=== PATIENT | female | born 1945 | race Hispanic/Latino ===

== ENCOUNTER 2023-08-16 10:44 | Observation (INO) | payer MEDICARE ==
[~2023-08-16] VITALS: Ht 147.3 cm; Wt 64.0 kg
[~2023-08-16 10:44] MED LIST: ASPIRIN EC81 MG PO; CARBIDOPA-LEVO1 EAC1 PO; LACTULOSE20 GM/30 M PO; XIFAXAN550 MG PO
[2023-08-16 11:21] LABS: BASOPHILS % 0.3 % (0.0-1.0); EOSINOPHILS # (AUTO) 0.1 (0.0-0.4); EOSINOPHILS % 2.2 % (0.0-6.0); HEMATOCRIT 33.6 % (34.2-44.1); HEMOGLOBIN 11.6 g/dL (12.0-16.0); LYMPHOCYTES # (AUTO) 2.6 (1.0-3.2); LYMPHOCYTES % 40.2 % (18.0-39.1); MEAN CORPUSCULAR HEMOGLOBIN 31.3 pg (28-32); MEAN CORPUSCULAR HGB CONC 34.5 g/dL (31-35); MEAN CORPUSCULAR VOLUME 90.6 fL (81-99); MONOCYTES # (AUTO) 0.5 (0.2-0.8); MONOCYTES % 7.6 % (4.4-11.3); NEUTROPHILS # (AUTO) 3.2 (2.1-6.9); NEUTROPHILS % 49.5 % (38.7-80.0); PLATELET COUNT 132 x10e3/uL (140-360); RED BLOOD COUNT 3.71 x10e6/uL (3.6-5.1); RED CELL DISTRIBUTION WIDTH 16.6 % (11.7-14.4); WHITE BLOOD COUNT 6.49 x10e3/uL (4.8-10.8)
[2023-08-16 11:35] LABS: INR 1.17; PROTHROMBIN TIME 15.7 seconds (11.9-14.5)
[2023-08-16 11:36] LABS: PARTIAL THROMBOPLASTIN TIME 34.4 seconds (23.8-35.5)
[2023-08-16 11:36] LABS: CLARITY,URINE CLEAR (CLEAR); COLOR,URINE YELLOW (YELLOW)
[2023-08-16 11:37] LABS: BILIRUBIN,URINE NEGATIVE (NEGATIVE); GLUCOSE, URINE NEGATIVE (NEGATIVE); KETONES,URINE TRACE (NEGATIVE); LEUKOCYTE ESTERASE ,URINE NEGATIVE (NEGATIVE); NITRITE,URINE POSITIVE (NEGATIVE); PH,URINE 6 (5 - 7); PROTEIN,URINE DIPSTICK 2+ (NEGATIVE); RBC,URINE 0-5 /HPF (0-5); URINE UROBILINOGEN 1 mg/dL (0.2 - 1)
[2023-08-16 11:38] LABS: BACTERIA,URINE MANY /HPF; EPITHELIAL CELLS,URINE MODERATE /LPF; WBC,URINE (MAN) 0-5 /HPF (0-5)
[2023-08-16 11:48] LABS: ALBUMIN 2.7 g/dL (3.5-5.0); ALBUMIN/GLOBULIN RATIO 0.6 (0.8-2.0); ANION GAP 17.6 mmol/L (8-16); BILIRUBIN,TOTAL 1.8 mg/dL (0.2-1.2); CALCIUM 9.2 mg/dL (8.4-10.2); CREATININE, SERUM 1.06 mg/dL (0.57-1.11); POTASSIUM 3.6 mmol/L (3.5-5.1); TOTAL PROTEIN 7.3 g/dL (6.5-8.1)
[2023-08-16] MEDS ORDERED: SODIUM CHLORIDE FLUSH 10 ML SYR INJ PRN (13:15)
[2023-08-16] MEDS ORDERED: ONDANSETRON HCL INJ 2MG/ML 2ML 2 MG/ML VIAL IV PRN (13:15)
[2023-08-16] MEDS ORDERED: OMEPRAZOLE40 MG PO (16:01)
[2023-08-16] MEDS ORDERED: ATORVASTATIN CA20 MG PO (16:01)
[2023-08-16] MEDS ORDERED: SINEMET 25-1001 EACH PO (16:01)
[2023-08-16] MEDS ORDERED: AMLODIPINE BESYL5 MG PO (16:01)
[2023-08-16] MEDS: LACTULOSE SYRUP 20 GM/30 ML UDC PO PRN (16:10)
[2023-08-16 16:15] VITALS: BP 133/56; PULSE 80; RESP 20; TEMP 97.8; O2SAT 100
[2023-08-16] MEDS ORDERED: SIMETHICONE 80 MG CHEW PO PRN (18:15)
[2023-08-16] MEDS ORDERED: ALBUTEROL/IPRATROPIUM 3 ML NEB NEB PRN (18:15)
[2023-08-16] MEDS ORDERED: METOPROLOL TARTRATE INJ 1 MG/ML VIAL IV PRN (18:15)
[2023-08-16] MEDS: LACTULOSE SYRUP 20 GM/30 ML UDC PO SCH (18:15)
[2023-08-16 20:00] VITALS: BP 131/57; PULSE 84; RESP 18; TEMP 97.8; O2SAT 100
[2023-08-16] MEDS: CARBIDOPA/LEVODOPA 25/100 TAB PO SCH (22:04)
[2023-08-16 23:48] VITALS: BP 142/57; PULSE 85; RESP 18; TEMP 98.4; O2SAT 100
[2023-08-17] VITALS: BP 142/57; PULSE 85; RESP 18; TEMP 98.4; O2SAT 100
[2023-08-17 04:00] VITALS: BP 133/59; PULSE 86; RESP 18; TEMP 98; O2SAT 97
[2023-08-17 04:43] VITALS: BP 133/59; PULSE 86; RESP 18; TEMP 98; O2SAT 97
[2023-08-17 07:30] LABS: BASOPHILS % 0.5 % (0.0-1.0); EOSINOPHILS # (AUTO) 0.2 (0.0-0.4); EOSINOPHILS % 3.6 % (0.0-6.0); HEMOGLOBIN 11.6 g/dL (12.0-16.0); LYMPHOCYTES # (AUTO) 2.6 (1.0-3.2); LYMPHOCYTES % 40.9 % (18.0-39.1); MEAN CORPUSCULAR HEMOGLOBIN 31.7 pg (28-32); MEAN CORPUSCULAR HGB CONC 35.2 g/dL (31-35); MEAN CORPUSCULAR VOLUME 90.2 fL (81-99); MONOCYTES # (AUTO) 0.7 (0.2-0.8); MONOCYTES % 11.7 % (4.4-11.3); NEUTROPHILS # (AUTO) 2.7 (2.1-6.9); NEUTROPHILS % 43.1 % (38.7-80.0); PLATELET COUNT 126 x10e3/uL (140-360); RED BLOOD COUNT 3.66 x10e6/uL (3.6-5.1); RED CELL DISTRIBUTION WIDTH 16.7 % (11.7-14.4); WHITE BLOOD COUNT 6.35 x10e3/uL (4.8-10.8)
[2023-08-17 07:50] LABS: ALBUMIN 2.7 g/dL (3.5-5.0); ALBUMIN/GLOBULIN RATIO 0.6 (0.8-2.0); ANION GAP 14.7 mmol/L (8-16); BILIRUBIN,TOTAL 1.8 mg/dL (0.2-1.2); CALCIUM 9.3 mg/dL (8.4-10.2); CREATININE, SERUM 0.91 mg/dL (0.57-1.11); POTASSIUM 3.7 mmol/L (3.5-5.1); TOTAL PROTEIN 7.4 g/dL (6.5-8.1)
[2023-08-17 08:14] VITALS: BP 137/68; PULSE 82; RESP 17; TEMP 98.4; O2SAT 100
[2023-08-17 08:46] VITALS: BP 137/68; PULSE 82; RESP 17; TEMP 98.4; O2SAT 100
[2023-08-17] MEDS: PANTOPRAZOLE SOD 40 MG TABEC PO SCH (09:12)
[2023-08-17] MEDS: RIFAXIMIN 550 MG TABLET PO SCH (09:12)
[2023-08-17] MEDS: AMLODIPINE BESYLATE 5 MG TAB PO SCH (09:12)
[2023-08-17] MEDS: SODIUM BICARBONATE 650 MG TAB PO SCH (09:17)
[2023-08-17] MEDS ORDERED: SODIUM BICARBO650 MG PO (10:56)
[2023-08-17] MEDS ORDERED: LACTULOSE20 GM/30 M PO (10:56)
[2023-08-17] MEDS ORDERED: CEPHALEXIN500 MG PO (11:01)
[2023-08-17 12:11] VITALS: BP 124/46; PULSE 78; RESP 17; TEMP 98.2; O2SAT 99
[2023-08-17] MEDS ORDERED: ONDANSETRON HCL 4 MG ORAL DISINTEGRATING TAB PO PRN (12:30)
== END 2023-08-17 13:53 | disposition home or self-care (01) ==
LOC: ER 10:50 → ERHOLD 13:10 → MED/SURG3 15:17
PROVIDERS: ADMIT Internal Medicine; ATTEND Internal Medicine
DX: K76.82 Hepatic encephalopathy (principal); N39.0 Urinary tract infection, site not specified; K74.69 Other cirrhosis of liver; E72.20 Disorder of urea cycle metabolism, unspecified; I10 Essential (primary) hypertension; E11.9 Type 2 diabetes mellitus without complications; G20.A1 Parkinson's disease without dyskinesia, without mention of fluctuations; Z86.73 Personal history of transient ischemic attack (TIA), and cerebral infarction without residual deficits; Z11.52 Encounter for screening for COVID-19; Z79.899 Other long term (current) drug therapy; Z79.82 Long term (current) use of aspirin
CPT/HCPCS: 36415 ×2; 70450; 71045; 80053 ×2; 81001; 82140 ×2; 82948 ×2; 84484; 85025 ×2; 85610; 85730; 93005; 99284; G0378 ×2; J0696; S0164; U0002

== ENCOUNTER 2024-01-29 07:09 | Inpatient (IN) | payer MEDICARE ==
[2024-01-29] VITALS (7 sets, daily range): BP systolic 114–140; BP diastolic 43–61; PULSE 86–92; RESP 18–19; TEMP 97.7–98.7; O2SAT 98–99
[~2024-01-29] VITALS: Ht 144.8 cm; Wt 67.1 kg
[~2024-01-29 07:09] MED LIST changes: +AMLODIPINE BESYL5 MG PO; +ATORVASTATIN CA20 MG PO; +CEPHALEXIN500 MG PO; +OMEPRAZOLE40 MG PO; +SINEMET 25-1001 EACH PO; +SODIUM BICARBO650 MG PO
[2024-01-29 08:32] LABS: BASOPHILS % 0.3 % (0.0-1.0); EOSINOPHILS # (AUTO) 0.2 (0.0-0.4); EOSINOPHILS % 2.9 % (0.0-6.0); HEMATOCRIT 33.5 % (34.2-44.1); HEMOGLOBIN 10.9 g/dL (12.0-16.0); LYMPHOCYTES # (AUTO) 1.9 (1.0-3.2); LYMPHOCYTES % 26.4 % (18.0-39.1); MEAN CORPUSCULAR HEMOGLOBIN 30.4 pg (28-32); MEAN CORPUSCULAR HGB CONC 32.5 g/dL (31-35); MEAN CORPUSCULAR VOLUME 93.3 fL (81-99); MONOCYTES # (AUTO) 0.7 (0.2-0.8); MONOCYTES % 9.7 % (4.4-11.3); NEUTROPHILS # (AUTO) 4.3 (2.1-6.9); NEUTROPHILS % 60.1 % (38.7-80.0); PLATELET COUNT 145 x10e3/uL (140-360); RED BLOOD COUNT 3.59 x10e6/uL (3.6-5.1); WHITE BLOOD COUNT 7.21 x10e3/uL (4.8-10.8)
[2024-01-29] MEDS ORDERED: ONDANSETRON HCL INJ 2MG/ML 2ML 2 MG/ML VIAL IV PRN (08:45)
[2024-01-29 08:52] LABS: INR 1.41; PARTIAL THROMBOPLASTIN TIME 36.4 seconds (23.8-35.5)
[2024-01-29 08:56] LABS: ANION GAP 17.3 mmol/L (8-16); BILIRUBIN,TOTAL 2.4 mg/dL (0.2-1.2); CALCIUM 8.6 mg/dL (8.4-10.2); CREATININE, SERUM 1.49 mg/dL (0.57-1.11); MAGNESIUM 1.5 MG/DL (1.3-2.1); TOTAL PROTEIN 6.7 g/dL (6.5-8.1)
[2024-01-29 09:01] LABS: TROPONIN I 0.038 ng/mL (0-0.300)
[2024-01-29 09:06] LABS: POTASSIUM 3.3 mmol/L (3.5-5.1)
[2024-01-29 09:12] LABS: ALBUMIN 2.2 g/dL (3.5-5.0); ALBUMIN/GLOBULIN RATIO 0.5 (0.8-2.0)
[2024-01-29 09:58] LABS: CLARITY,URINE CLEAR (CLEAR); COLOR,URINE YELLOW (YELLOW); GLUCOSE, URINE NEGATIVE (NEGATIVE); LEUKOCYTE ESTERASE ,URINE NEGATIVE (NEGATIVE); NITRITE,URINE NEGATIVE (NEGATIVE); PH,URINE 6.5 (5 - 7); PROTEIN,URINE DIPSTICK NEGATIVE (NEGATIVE)
[2024-01-29 09:59] LABS: BILIRUBIN,URINE NEGATIVE (NEGATIVE); KETONES,URINE NEGATIVE (NEGATIVE); URINE UROBILINOGEN 1 mg/dL (0.2 - 1)
[2024-01-29 10:02] LABS: EPITHELIAL CELLS,URINE MODERATE /LPF
[2024-01-29 10:03] LABS: BACTERIA,URINE MODERATE /HPF
[2024-01-29 10:05] LABS: RBC,URINE 0-5 /HPF (0-5)
[2024-01-29] MEDS: LACTULOSE SYRUP 20 GM/30 ML UDC PO SCH (10:37)
[2024-01-29] MEDS: RIFAXIMIN 550 MG TABLET PO SCH (10:37)
[2024-01-29] MEDS ORDERED: DEXTROSE 50% SYRINGE 50 ML IV PRN (15:00)
[2024-01-29] MEDS ORDERED: ACETAMINOPHEN 325 MG TAB PO PRN (15:00)
[2024-01-29] MEDS ORDERED: MELATONIN 5 MG TABLET PO PRN (15:00)
[2024-01-29] MEDS ORDERED: LIDOCAINE 4% PATCH TP PRN (15:00)
[2024-01-29] MEDS ORDERED: ALBUTEROL/IPRATROPIUM 3 ML NEB NEB PRN (15:00)
[2024-01-29] MEDS ORDERED: SIMETHICONE 80 MG CHEW PO PRN (15:00)
[2024-01-29] MEDS ORDERED: BENZONATATE 100 MG CAP PO PRN (15:00)
[2024-01-29] MEDS ORDERED: HYDRALAZINE HCL 20 MG/ML VIAL IV PRN (15:00)
[2024-01-29] MEDS ORDERED: DOCUSATE SODIUM 100 MG CAP PO PRN (15:00)
[2024-01-29] MEDS ORDERED: DIPHENHYDRAMINE HCL 25 MG CAP PO PRN (15:00)
[2024-01-29] MEDS: DEXTROSE 5%/0.9% SOD CHL 1,000 ML IV SCH (16:04)
[2024-01-29 16:39] LABS: TROPONIN I 0.038 ng/mL (0-0.300)
[2024-01-30] VITALS (8 sets, daily range): BP systolic 109–152; BP diastolic 46–66; PULSE 74–89; RESP 16–21; TEMP 97.8–99.7; O2SAT 95–100
[2024-01-30 05:50] LABS: BASOPHILS % 0.6 % (0.0-1.0); EOSINOPHILS # (AUTO) 0.3 (0.0-0.4); EOSINOPHILS % 4.5 % (0.0-6.0); HEMATOCRIT 27.6 % (34.2-44.1); HEMOGLOBIN 9.1 g/dL (12.0-16.0); LYMPHOCYTES # (AUTO) 1.7 (1.0-3.2); LYMPHOCYTES % 27.5 % (18.0-39.1); MEAN CORPUSCULAR HEMOGLOBIN 30.5 pg (28-32); MEAN CORPUSCULAR VOLUME 92.6 fL (81-99); MONOCYTES # (AUTO) 0.7 (0.2-0.8); MONOCYTES % 10.8 % (4.4-11.3); NEUTROPHILS # (AUTO) 3.5 (2.1-6.9); NEUTROPHILS % 56.1 % (38.7-80.0); PLATELET COUNT 124 x10e3/uL (140-360); RED BLOOD COUNT 2.98 x10e6/uL (3.6-5.1); RED CELL DISTRIBUTION WIDTH 19.3 % (11.7-14.4); WHITE BLOOD COUNT 6.19 x10e3/uL (4.8-10.8)
[2024-01-30 06:14] LABS: ALBUMIN 1.8 g/dL (3.5-5.0); ALBUMIN/GLOBULIN RATIO 0.5 (0.8-2.0); BILIRUBIN,TOTAL 1.8 mg/dL (0.2-1.2); CALCIUM 8.1 mg/dL (8.4-10.2); CREATININE, SERUM 1.27 mg/dL (0.57-1.11); TOTAL PROTEIN 5.4 g/dL (6.5-8.1)
[2024-01-30 06:36] LABS: TROPONIN I 0.035 ng/mL (0-0.300)
[2024-01-30 06:52] LABS: ANION GAP 9.9 mmol/L (8-16)
[2024-01-30 06:55] LABS: POTASSIUM 2.9 mmol/L (3.5-5.1)
[2024-01-30] MEDS: PANTOPRAZOLE SOD 40 MG TABEC PO SCH (08:08)
[2024-01-30] MEDS: POTASSIUM CHLORIDE 20 MEQ TAB CR PO PRN (08:09)
[2024-01-30] MEDS: POTASSIUM CHLORIDE 20 MEQ TAB CR PO ONE (15:43)
[2024-01-31] VITALS (10 sets, daily range): BP systolic 120–148; BP diastolic 50–62; PULSE 77–87; RESP 16–20; TEMP 97.6–98.2; O2SAT 95–100
[2024-01-31 07:03] LABS: ANION GAP 10.7 mmol/L (8-16); CALCIUM 8.3 mg/dL (8.4-10.2); CREATININE, SERUM 1.06 mg/dL (0.57-1.11); POTASSIUM 3.7 mmol/L (3.5-5.1)
[2024-01-31] MEDS: DEXTROSE 5% 1,000 ML IV SCH (16:09)
[2024-01-31] MEDS: LACTULOSE SYRUP 20 GM/30 ML UDC PO SCH (16:10)
[2024-02-01] VITALS: BP 128/60; PULSE 73; RESP 20; TEMP 98.2; O2SAT 100
[2024-02-01 04:00] VITALS: BP 128/67; PULSE 73; RESP 17; TEMP 97.8; O2SAT 100
[2024-02-01 05:29] LABS: BASOPHILS % 0.6 % (0.0-1.0); EOSINOPHILS # (AUTO) 0.5 (0.0-0.4); EOSINOPHILS % 6.7 % (0.0-6.0); HEMATOCRIT 27.4 % (34.2-44.1); HEMOGLOBIN 8.9 g/dL (12.0-16.0); LYMPHOCYTES # (AUTO) 2.1 (1.0-3.2); LYMPHOCYTES % 30.4 % (18.0-39.1); MEAN CORPUSCULAR HEMOGLOBIN 30.7 pg (28-32); MEAN CORPUSCULAR HGB CONC 32.5 g/dL (31-35); MEAN CORPUSCULAR VOLUME 94.5 fL (81-99); MONOCYTES # (AUTO) 0.6 (0.2-0.8); MONOCYTES % 8.5 % (4.4-11.3); NEUTROPHILS # (AUTO) 3.8 (2.1-6.9); NEUTROPHILS % 53.2 % (38.7-80.0); PLATELET COUNT 106 x10e3/uL (140-360); RED CELL DISTRIBUTION WIDTH 19.9 % (11.7-14.4); WHITE BLOOD COUNT 7.05 x10e3/uL (4.8-10.8)
[2024-02-01 05:44] LABS: ANION GAP 12.3 mmol/L (8-16); CALCIUM 8.4 mg/dL (8.4-10.2); CREATININE, SERUM 0.9 mg/dL (0.57-1.11)
[2024-02-01 05:59] LABS: POTASSIUM 3.3 mmol/L (3.5-5.1)
[2024-02-01 08:00] VITALS: BP 131/60; PULSE 71; RESP 17; TEMP 97.7; O2SAT 100
[2024-02-01 08:43] VITALS: BP 131/90; PULSE 71; RESP 17; TEMP 97.7; O2SAT 98
[2024-02-01 11:37] VITALS: BP 125/94; PULSE 77; RESP 18; TEMP 97.7; O2SAT 100
[2024-02-01 15:34] VITALS: BP 125/58; PULSE 76; RESP 17; TEMP 98.1; O2SAT 99
[2024-02-01] MEDS: SODIUM BICARBONATE 8.4% INJ 50 ML SYR IV ONE (16:11)
[2024-02-01 19:21] LABS: ANION GAP 12.7 mmol/L (8-16); CALCIUM 8.5 mg/dL (8.4-10.2); CREATININE, SERUM 0.97 mg/dL (0.57-1.11); POTASSIUM 3.7 mmol/L (3.5-5.1)
== END 2024-02-01 20:06 | disposition home or self-care (01) | DRG 433 ==
LOC: ER 07:15 → ERHOLD 08:38 → MED/SURG2 10:08
PROVIDERS: ADMIT Internal Medicine; ATTEND Internal Medicine
DX: K74.60 Unspecified cirrhosis of liver (principal); D68.9 Coagulation defect, unspecified; N17.9 Acute kidney failure, unspecified; E87.0 Hyperosmolality and hypernatremia; K76.82 Hepatic encephalopathy; K76.0 Fatty (change of) liver, not elsewhere classified; G20.A1 Parkinson's disease without dyskinesia, without mention of fluctuations; E78.5 Hyperlipidemia, unspecified; I10 Essential (primary) hypertension; E87.6 Hypokalemia; Z79.82 Long term (current) use of aspirin; Z90.49 Acquired absence of other specified parts of digestive tract; Z82.49 Family history of ischemic heart disease and other diseases of the circulatory system
CPT/HCPCS: 36415; 70450; 71045; 80048; 80053; 81001; 82140; 82550; 83735; 84484; 85025; 85610; 85730; 87086; 93005; 94799; 99252; 99284; J2470; J7042; J7070

== ENCOUNTER 2024-03-23 13:13 | Inpatient (IN) | payer MEDICARE ==
[~2024-03-23] VITALS: Ht 144.8 cm; Wt 59.4 kg
[2024-03-23 13:42] VITALS: TEMP 98.1
[2024-03-23 14:00] LABS: BASOPHILS % 0.4 % (0.0-1.0); EOSINOPHILS # (AUTO) 0.1 (0.0-0.4); EOSINOPHILS % 1.1 % (0.0-6.0); HEMATOCRIT 30.8 % (34.2-44.1); HEMOGLOBIN 10.3 g/dL (12.0-16.0); LYMPHOCYTES # (AUTO) 1.9 (1.0-3.2); LYMPHOCYTES % 26.5 % (18.0-39.1); MEAN CORPUSCULAR HGB CONC 33.4 g/dL (31-35); MEAN CORPUSCULAR VOLUME 92.8 fL (81-99); MONOCYTES # (AUTO) 0.5 (0.2-0.8); MONOCYTES % 7.3 % (4.4-11.3); NEUTROPHILS # (AUTO) 4.7 (2.1-6.9); PLATELET COUNT 130 x10e3/uL (140-360); RED BLOOD COUNT 3.32 x10e6/uL (3.6-5.1); RED CELL DISTRIBUTION WIDTH 17.6 % (11.7-14.4); WHITE BLOOD COUNT 7.29 x10e3/uL (4.8-10.8)
[2024-03-23 14:12] LABS: INR 1.46; PROTHROMBIN TIME 18.5 seconds (11.9-14.5)
[2024-03-23 14:21] LABS: ALBUMIN 2.3 g/dL (3.5-5.0); ALBUMIN/GLOBULIN RATIO 0.5 (0.8-2.0); ANION GAP 17.2 mmol/L (8-16); BILIRUBIN,TOTAL 4.1 mg/dL (0.2-1.2); CALCIUM 9.3 mg/dL (8.4-10.2); CREATININE, SERUM 1.13 mg/dL (0.57-1.11); MAGNESIUM 1.6 MG/DL (1.3-2.1); POTASSIUM 3.2 mmol/L (3.5-5.1); TOTAL PROTEIN 7.1 g/dL (6.5-8.1)
[2024-03-23 14:26] LABS: TROPONIN I 0.072 ng/mL (0-0.300)
[2024-03-23] MEDS: LACTULOSE SYRUP 20 GM/30 ML UDC PO ONE (15:47)
[2024-03-23] MEDS: SODIUM CHLORIDE 0.9% 1000ML 1,000 ML IV SCH (16:15)
[2024-03-23] MEDS: ONDANSETRON HCL INJ 2MG/ML 2ML 2 MG/ML VIAL IV PRN (16:15)
[2024-03-23 16:31] VITALS: PULSE 86; RESP 18
[2024-03-23] MEDS ORDERED: LACTULOSE SYRUP 20 GM/30 ML UDC RC SCH (17:00)
[2024-03-23 18:04] VITALS: BP 95/44; PULSE 88; RESP 18; TEMP 97.2; O2SAT 100
[2024-03-23] MEDS ORDERED: WATER STERILE FOR IRRIG 1000 ML PLCT ONE (18:42)
[2024-03-23 20:00] VITALS: BP 105/56; PULSE 84; RESP 16; TEMP 97.9; O2SAT 100
[2024-03-23 21:00] VITALS: BP 105/56; PULSE 84; RESP 16; TEMP 97.9; O2SAT 100
[2024-03-23] MEDS: LACTULOSE SYRUP 20 GM/30 ML UDC RC SCH (22:24)
[2024-03-24] VITALS (8 sets, daily range): BP systolic 101–120; BP diastolic 42–58; PULSE 72–82; RESP 16–18; TEMP 97–98.1; O2SAT 100
[2024-03-24] MEDS ORDERED: ACETAMINOPHEN 325 MG TAB PO PRN (01:30)
[2024-03-24] MEDS ORDERED: SIMETHICONE 80 MG CHEW PO PRN (01:30)
[2024-03-24] MEDS ORDERED: MELATONIN 5 MG TABLET PO PRN (01:30)
[2024-03-24] MEDS ORDERED: LIDOCAINE 4% PATCH TP PRN (01:30)
[2024-03-24] MEDS ORDERED: DEXTROSE 50% SYRINGE 50 ML IV PRN (01:30)
[2024-03-24] MEDS ORDERED: ALBUTEROL/IPRATROPIUM 3 ML NEB NEB PRN (01:30)
[2024-03-24] MEDS ORDERED: DIPHENHYDRAMINE HCL 25 MG CAP PO PRN (01:30)
[2024-03-24] MEDS ORDERED: HYDRALAZINE HCL 20 MG/ML VIAL IV PRN (01:30)
[2024-03-24] MEDS ORDERED: DOCUSATE SODIUM 100 MG CAP PO PRN (01:30)
[2024-03-24] MEDS ORDERED: BENZONATATE 100 MG CAP PO PRN (01:30)
[2024-03-24 06:15] LABS: BASOPHILS % 0.5 % (0.0-1.0); EOSINOPHILS # (AUTO) 0.2 (0.0-0.4); EOSINOPHILS % 3.4 % (0.0-6.0); HEMATOCRIT 25.9 % (34.2-44.1); LYMPHOCYTES # (AUTO) 2.1 (1.0-3.2); MEAN CORPUSCULAR HEMOGLOBIN 31.6 pg (28-32); MEAN CORPUSCULAR HGB CONC 34.7 g/dL (31-35); MEAN CORPUSCULAR VOLUME 90.9 fL (81-99); MONOCYTES # (AUTO) 0.6 (0.2-0.8); MONOCYTES % 8.7 % (4.4-11.3); NEUTROPHILS # (AUTO) 3.5 (2.1-6.9); NEUTROPHILS % 54.3 % (38.7-80.0); RED BLOOD COUNT 2.85 x10e6/uL (3.6-5.1); RED CELL DISTRIBUTION WIDTH 17.9 % (11.7-14.4); WHITE BLOOD COUNT 6.43 x10e3/uL (4.8-10.8)
[2024-03-24 06:25] LABS: PLATELET COUNT 106 x10e3/uL (140-360)
[2024-03-24 07:06] LABS: ALBUMIN 1.9 g/dL (3.5-5.0); ALBUMIN/GLOBULIN RATIO 0.5 (0.8-2.0); ANION GAP 12.1 mmol/L (8-16); BILIRUBIN,TOTAL 3.4 mg/dL (0.2-1.2); CALCIUM 8.5 mg/dL (8.4-10.2); CREATININE, SERUM 0.95 mg/dL (0.57-1.11); TOTAL PROTEIN 5.7 g/dL (6.5-8.1)
[2024-03-24 07:08] LABS: POTASSIUM 3.1 mmol/L (3.5-5.1)
[2024-03-24] MEDS: CARBIDOPA/LEVODOPA 25/100 TAB PO SCH (09:00)
[2024-03-24] MEDS: RIFAXIMIN 550 MG TABLET PO SCH (09:00)
[2024-03-24] MEDS: AMLODIPINE BESYLATE 5 MG TAB PO SCH (09:00)
[2024-03-24] MEDS ORDERED: WATER STERILE FOR IRRIG 1000 ML PLCT ONE ×2 (10:08→13:31)
[2024-03-24] MEDS: POTASSIUM CHLORIDE 20 MEQ TAB CR PO PRN (17:13)
[2024-03-24] MEDS: PANTOPRAZOLE SOD 40 MG TABEC PO SCH (17:13)
[2024-03-24] MEDS: ENOXAPARIN SOD INJ 40 MG/0.4 ML SYR SC SCH (17:14)
[2024-03-24] MEDS: LACTULOSE SYRUP 20 GM/30 ML UDC PO SCH (17:37)
[2024-03-24] MEDS: ATORVASTATIN 20 MG TAB PO SCH (22:51)
[2024-03-25] VITALS (10 sets, daily range): BP systolic 106–132; BP diastolic 52–63; PULSE 79–99; RESP 16–20; TEMP 97.7–98.7; O2SAT 100
[2024-03-25 06:47] LABS: BASOPHILS % 0.3 % (0.0-1.0); EOSINOPHILS # (AUTO) 0.2 (0.0-0.4); EOSINOPHILS % 2.3 % (0.0-6.0); HEMATOCRIT 27.2 % (34.2-44.1); HEMOGLOBIN 9.1 g/dL (12.0-16.0); LYMPHOCYTES # (AUTO) 2.1 (1.0-3.2); LYMPHOCYTES % 28.2 % (18.0-39.1); MEAN CORPUSCULAR HEMOGLOBIN 31.1 pg (28-32); MEAN CORPUSCULAR HGB CONC 33.5 g/dL (31-35); MEAN CORPUSCULAR VOLUME 92.8 fL (81-99); MONOCYTES # (AUTO) 0.7 (0.2-0.8); MONOCYTES % 9.6 % (4.4-11.3); NEUTROPHILS # (AUTO) 4.3 (2.1-6.9); NEUTROPHILS % 58.2 % (38.7-80.0); PLATELET COUNT 111 x10e3/uL (140-360); RED BLOOD COUNT 2.93 x10e6/uL (3.6-5.1); RED CELL DISTRIBUTION WIDTH 18.4 % (11.7-14.4)
[2024-03-25 07:12] LABS: ANION GAP 13.4 mmol/L (8-16); CALCIUM 8.3 mg/dL (8.4-10.2); CREATININE, SERUM 1.02 mg/dL (0.57-1.11); MAGNESIUM 1.6 MG/DL (1.3-2.1)
[2024-03-25 07:17] LABS: POTASSIUM 3.4 mmol/L (3.5-5.1)
[2024-03-25] MEDS ORDERED: PANTOPRAZOLE SOD 40 MG TABEC PO SCH (07:30)
[2024-03-25] MEDS: DEXTROSE 5% 1,000 ML IV SCH (16:57)
[2024-03-26] VITALS (7 sets, daily range): BP systolic 97–112; BP diastolic 48–52; PULSE 72–77; RESP 14–20; TEMP 97.6–97.9; O2SAT 96–100
[2024-03-26 06:52] LABS: ANION GAP 12.1 mmol/L (8-16); CALCIUM 7.6 mg/dL (8.4-10.2); CREATININE, SERUM 0.89 mg/dL (0.57-1.11)
[2024-03-26 07:06] LABS: POTASSIUM 3.1 mmol/L (3.5-5.1)
[2024-03-26] MEDS ORDERED: ONDANSETRON HCL 4 MG ORAL DISINTEGRATING TAB PO PRN (16:15)
[2024-04-03] MEDS ORDERED: SPIRONOLACTONE50 MG PO (00:12)
[2024-04-03] MEDS ORDERED: FUROSEMIDE20 MG PO (00:12)
== END 2024-03-26 17:05 | disposition home or self-care (01) | DRG 432 ==
LOC: ER 13:50 → ERHOLD 16:05 → MED/SURG3 18:24
PROVIDERS: ADMIT Internal Medicine; ATTEND Internal Medicine
DX: K74.69 Other cirrhosis of liver (principal); E43 Unspecified severe protein-calorie malnutrition; E87.0 Hyperosmolality and hypernatremia; G20.A1 Parkinson's disease without dyskinesia, without mention of fluctuations; K75.81 Nonalcoholic steatohepatitis (NASH); K76.82 Hepatic encephalopathy; E78.5 Hyperlipidemia, unspecified; I10 Essential (primary) hypertension; Z79.82 Long term (current) use of aspirin; Z90.49 Acquired absence of other specified parts of digestive tract; Z68.28 Body mass index [BMI] 28.0-28.9, adult
CPT/HCPCS: 36415; 70450; 71045; 80048; 80053; 82140; 82550; 82948; 83690; 83735; 84484; 85025; 85610; 85730; 93005; 94799; 99252; 99284; J1650; J2405; J2470; J7030; J7070